=== PATIENT | female | born 1950 | race Caucasian/White ===

== ENCOUNTER → 2017-12-02 | Outpatient (CLI) | payer MEDICARE ==
[~2017-12-02] MED LIST: ALENDRONATE SOD70 MG PO; BENADRYL25 M1 PO; BENTYL10 MG PO; BUPROPION HCL100 MG PO; BUPROPION HCL75 MG PO; CALCIUM600 MG PO; CIPRO500 MG PO; DICLOFENAC SOD100 MG PO; DICYCLOMINE HCL10 MG PO; DIPHENHYDRAMINE25 M2 PO; DOXYCYCLINE HY100 MG PO; FUROSEMIDE40 MG PO; GABAPENTIN100 MG PO; IMODIUM2 MG PO; IMURAN50 MG PO; IRON325 MG PO; K DUR10 MEQ PO; KETOPROFEN50 MG PO; LASIX40 MG PO; LIDOPATCH1 EACH TD; LOPERAMIDE2 MG PO; LORATADINE10 M1 PO; LORATADINE10 MG PO; LOVENOX40 MG/0.4 SC; MELOXICAM7.5 MG PO; MUCINEX600 MG PO; MYRBETRIQ50 MG PO; NEOMYCIN-POLYMY10 ML EACH EAR; NORCO 10MG-325MG1 EA PO; NORCO 5-325 TA1 EACH PO; OMEPRAZOLE20 M1 PO; OYST-CAL-500500 MG PO; PANTOPRAZOLE SO40 MG PO; SENNA8.6 MG PO; SERTRALINE HCL100 MG PO; SERTRALINE HCL50 MG PO; SIMVASTATIN40 MG PO; SULFAMETHOXAZO1 EAC1 PO; TRAMADOL-ACETAMI1 EA PO; TRIFLUOPERAZINE1 MG PO; ULTRACET TABLE1 EACH PO; ULTRAM50 MG PO; VITAMIN D2000 UNIT PO; ZOCOR40 MG PO
--- NOTE | 2017-12-03 07:15 | Diagnostic Imaging Report ---
EXAMINATION: CT of the lumbar spine HISTORY: Low back pain radiating to the right lower extremity COMPARISON: Abdomen CT on 04/11/2015 TECHNIQUE: Multidetector helical axial images were obtained without contrast from L1 to S1. The images were reconstructed using bone and soft tissue algorithms and were viewed in axial, sagittal, and coronal planes. FINDINGS: Alignment:Normal alignment and lordosis. Vertebral bodies: -Normal height and density. -Irregularity of the spinous processes of T12, with a small bone fragment along the inferior margin of the T12 spinous process, also irregularities noted in the L4 and L5 spinous processes, perhaps sequela from remote trauma. -There is apposition of the spinous processes from L2-L3 to L4-L5 ([place] phenomena) with subchondral sclerosis. Paraspinal muscles:Partially visualized radiopaque stone in the left kidney, grossly unchanged from abdomen CT on 04/11/2015. Partially visualized wire from probable pain management device in the subcutaneous soft tissues of the left posterior lumbosacral/gluteal region. Intervertebral disks: L1-L2: Symmetric disc bulge, marginal endplate osteophytes and facet arthrosis. Moderate bilateral foraminal stenoses.. L2-L3: Mild symmetric disc bulge and facet arthrosis. Mild foraminal narrowing. L3-L4: Mild symmetric disc bulge, marginal endplate osteophytes and facet arthrosis. Mild foraminal narrowing.. L4-L5: Mild symmetric disc bulge, ligamenta flava thickening and moderate facet arthrosis. Mild spinal canal and bilateral foraminal stenoses.. L5-S1: Moderate bilateral facet arthroses with narrowing of the lateral recesses and moderate right, and mild left foraminal stenosis. Sacroiliac joints: Mild degenerative changes bilaterally. IMPRESSION: 1. Moderate degenerative foraminal stenosis bilaterally at L1-L2 and on the right at L5-S1. 2. Mild degenerative foraminal narrowing at L2-L3, L3-L4 and L4-L5. 3. Mild degenerative spinal canal stenosis at L4-5. Signed by: Dr. Cynthia Wright M.D. on 12/03/2017 7:11 AM
== END ==
LOC: CT 14:55
PROVIDERS: ATTEND Specialist
DX: M54.5 Low back pain (principal)
CPT/HCPCS: 72131

== ENCOUNTER 2018-03-27 20:35 | Emergency (ER) | payer MEDICARE, OTHER ==
[~2018-03-27] VITALS: Ht 154.9 cm; Wt 106.1 kg
--- OUTSIDE RECORDS SUMMARY | 2018-03-27 20:38 | XMS REPORT | Clinical Summary ---
Author Author [facility] Address Unknown Phone Unavailable Care Team Providers Care Financial Retirement Plan Specialist Name Role Phone MonicaTangela, Shanti PCP Allergies Comments Active Allergy Reactions Severity Noted Date Cefadroxil 06/12/2016 Codeine Rash Low 03/07/2016 Medications End Date Status Medication Sig Dispensed Refills Start Date Active buPROPion (WELLBUTRIN) 75 Take 150 mg 0 MG tablet by mouth 2 (two) times daily. Active trifluoperazine Take 1 mg by 0 (STELAZINE) 1 MG tablet mouth daily. Active simvastatin (ZOCOR) 40 MG Take 40 mg by 0 tablet mouth nightly. Active dicyclomine (BENTYL) 10 Take 10 mg by 0 MG capsule mouth 3 (three) times daily. Active TiZANidine (ZANAFLEX) 4 Take 4 mg by 0 MG capsule mouth every 8 (eight) hours. Active traZODone (DESYREL) 50 MG Take 50 mg by 0 tablet mouth nightly. Active azaTHIOprine (IMURAN) 50 Take 50 mg by 0 mg tablet mouth daily. Active alendronate (FOSAMAX) 70 Take 70 mg by 0 MG tablet mouth every 7 days Take in the morning with a full glass of water, on an empty stomach, and do not take anything else by mouth or lie down for the next 30 min. . Active ciclopirox (LOPROX) 0.77 Apply 0 % cream topically daily. Active gabapentin (NEURONTIN) Take 100 mg 0 100 MG capsule by mouth 3 (three) times daily. Active sertraline (ZOLOFT) 100 Take 100 mg 0 MG tablet by mouth daily. Active mirabegron (MYRBETRIQ) 50 Take by mouth 0 mg Tb24 daily. Active ketoconazole Apply 0 (KETOCONAZOLE) 2 % cream topically as needed. Active potassium chloride Take 10 mEq 0 (KLOR-CON) 10 MEQ CR by mouth 2 tablet (two) times daily. Active furosemide (LASIX) 40 MG Take 40 mg by 0 tablet mouth daily. Active clotrimazole-betamethason Apply 0 e (LOTRISONE) 1-0.05 % topically 2 lotion (two) times daily. Active phenazopyridine Take 200 mg 0 (PYRIDIUM) 200 MG tablet by mouth 3 (three) times daily as needed for Pain. Active Problems Problem Noted Date S/P appendectomy S/P tonsillectomy Tubal ligation status H/O foot surgery Social History Date Tobacco Use Types Packs/Day Years Used Former Smoker Smokeless Tobacco: Never Used Comments: Quit 15 years ago Alcohol Use Drinks/Week oz/Week Comments No Sex Assigned at Date Recorded Not on file Industry Job Start Date Occupation Not on file Not on file Not on file Travel End Travel History Travel Start No recent travel history available. Last Filed Vital Signs Not on file Plan of Treatment Not on file Implants Device Identifier Shelf Expiration Date Model / Serial / Lot Implanted Type Area Manufactur er 08/28/2019 3889-28 / / [id number] Lead Kt Spine Pisces Z Quad 28 Urology Left: Back [employer]: 3889-28 - [id number] NEUROMODUL Implanted: Qty: 1 on 06/19/2016 by Sergo Foley MD 08/30/2017 3058 / [id number] / Stimulator Neuro Int 3058 - Urology Left: Back [employer]: [id number] NEUROMODUL Implanted: Qty: 1 on 06/19/2016 by Sergo Foley MD Results Not on fileafter 03/26/2017 Insurance Payer Benefit Subscriber ID Type Phone Address Plan / Group [employer] [facility] AMER[employer]ROUP xxxxxxxxx CARE [facility] MEDICAID MEDICAID xxxxxxxxx Medicaid [place] ([place]) [place] [address]
--- OUTSIDE RECORDS SUMMARY | 2018-03-27 20:38 | XMS REPORT ---
Author Author [facility] Address Unknown Phone Unavailable Care Team Providers Care School Psychologist Name Role Phone CLIVE ARELLANO Unavailable Unavailable TORI BERNAL Unavailable Unavailable Problems This patient has no known problems. Allergies, Adverse Reactions, Alerts This patient has no known allergies or adverse reactions. Medications This patient has no known medications. Results Test Description Test Time Test Comments Text Results Atomic Results Result Comments CT LUMBAR SPINE WO 2017-12-03 07:04:00 [facility] [address] [address] Patient Name: JENNIFER RAGUETA MR #: [id number] : 1950 Age/Sex: 67/F Req #: [id number] Adm Physician: Ordered by: CLIVE ARELLANO MD Report #: [id number] Location: CT Room/Bed: Procedure: [id number] CT/CT LUMBAR SPINE WO Exam Date: 12/02/17 Exam Time: 1523 REPORT STATUS: Signed ADDENDUM #1 Dose modulation, iterative reconstruction, and/or weight based adjustment of the mA/kV was utilized to reduce the radiation dose to as low as reasonably achievable. Signed by: Dr. Cameron Wright M.D. on 01/06/2018 12:10 PM ORIGINAL REPORT EXAMINATION: CT of the lumbar spine HISTORY: Low back pain radiating to the right lower extremity COMPARISON: Abdomen CT on 04/11/2015 TECHNIQUE: Multidetector helical axial images were obtained without contrast from L1 to S1. The images were reconstructed using bone and soft tissue algorithms and were viewed in axial, sagittal, and coronal planes. FINDINGS: Alignment:Normal alignment and lordosis. Vertebral bodies: -Normal height and density. -Irregularity of the spinous processes of T12, with a small bone fragment along the inferior margin of the T12 spinous process, also irregularities noted in the L4 and L5 spinous processes, perhaps sequela from remote trauma. -There is apposition of the spinous processes from L2-L3 to L4-L5 ([place] phenomena) with subchondral sclerosis. Paraspinal muscles:Partially visualized radiopaque stone in the left kidney, grossly unchanged from abdomen CT on 04/11/2015. Partially visualized wire from probable pain management device in the subcutaneous soft tissues of the left posterior lumbosacral/gluteal region. Intervertebral disks: L1-L2: Symmetric disc bulge, marginal endplate osteophytes and facet arthrosis. Moderate bilateral foraminal stenoses.. L2-L3: Mild symmetric disc bulge and facet arthrosis. Mild foraminal narrowing. L3-L4: Mild symmetric disc bulge, marginal endplate osteophytes and facet arthrosis. Mild foraminal narrowing.. L4-L5: Mild symmetric disc bulge, ligamenta flava thi ckening and moderate facet arthrosis. Mild spinal canal and bilateral foraminal stenoses.. L5-S1: Moderate bilateral facet arthroses with narrowing of the lateral recesses and moderate right, and mild left foraminal stenosis. Sacroiliac joints: Mild degenerative changes bilaterally. IMPRESSION: 1. Moderate degenerative foraminal stenosis bilaterally at L1- L2 and on the right at L5-S1. 2. Mild degenerative foraminal narrowing at L2-L3, L3-L4 and L4-L5. 3. Mild degenerative spinal canal stenosis at L4-5. Signed by: Dr. Cameron Wright M.D. on 12/03/2017 7:11 AM Dictated By: CAMERON WRIGHT MD 1210 Transcribed By: EMERALD on 12/03/17 0711 COPY TO: CLIVE ARELLANO MD CHEST 2 VIEWS [facility] [address] [address] Patient Name: JENNIFER ARGUETA MR #: [id number] : 1950 Age/Sex: 66/F Req #: [id number] Adm Physician: Ordered by: TORI BERNAL MD Report #: [id number] Location: [facility] Room/Bed: Procedure: [id number] DX/CHEST 2 VIEWS Exam Date: 01/24/17 Exam Time: 939 REPORT STATUS: Signed PROCEDURE: X-RAY CHEST, TWO VIEWS COMPARISON: 03/10/2016. INDICATIONS: PULMONARY CONGESTION FINDINGS: Lungs are well-inflated. No focal airspace consolidation, pleural effusion, or pneumothorax. Tortuosity and atherosclerotic calcification of the thoracic aorta. Normal heart size. No pulmonary edema. No acute osseous abnormality. Nonaggressive appearing sclerotic focus in the proximal left humeral metadiaphysis likely represents an enchondroma or bone infarct. Well-circumscribed lucent lesion with a sclerotic margin in the right humeral head likely represents a subchondral cyst. Both lesions are unchanged relative to 03/10/2016. CONCLUSION: No acute cardiopulmonary abnormality. Dictated by: Tori Zamora M.D. on 01/24/2017 at 10:21 Electronically approved by: Tori Zamora M.D. on 01/24/2017 at 10:21 Dictated By: TORI ZAMORA MD 1021 Transcribed By: EMMANUEL on 01/24/17 1021 COPY TO: TORI BERNAL MD
--- OUTSIDE RECORDS SUMMARY | 2018-03-27 20:38 | XMS REPORT ---
Author Author Brisa Lynch [facility] Address Unknown Phone Unavailable Care Team Providers Care Mule Driver Name Role Phone Brisa Lynch Unavailable Allergies, Adverse Reactions, Alerts Substance Reaction Event Type N.K.D.A. 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 Assessment Hyperlipidemia, unspecified E78.5 Active Medications Medication Code System Code Instructions Start Date End Date Status Dosage azathioprine 50 mg tablet Unknown 0 Active Unknown dicyclomine 10 mg Cap Unknown 0 Active Unknown hydrocodone 10 mg-acetaminophen 325 mg tablet Unknown 0 Active Unknown Nystatin MEDISPAN [id number] [id number] UNIT/GM Externally Twice a day Active 1 to affected area pantoprazole 40 mg tablet,delayed release Unknown 0 Active Unknown gabapentin 300 mg Cap MEDISPAN [address]-85 Active Unknown bupropion HCl SR 150 mg tablet,extended release Unknown 0 Active Unknown tramadol 50 mg tablet Unknown 0 Active Unknown Simvastatin 40 mg Tab Unknown 0 Active Unknown Nystatin MEDISPAN [address]-45 598584 UNIT/GM Externally Twice a day Jan 23, 2016 Mar 05, 2016 Active 1 to affected area omeprazole 20 mg capsule,delayed release MEDISPAN [address]-46 Active Unknown Myrbetriq 50 mg tablet,extended release Unknown 0 Active Unknown Social History Social History Element Qualifiers Date Reported Tobacco Use: . Are you a: former smoker Mar 05, 2016 Caffeine intake? . Status: Yes Mar 05, 2016 Do you drink alcohol? . Status: No Mar 05, 2016 Family history Qualifier Description Comment Date Reported Maternal Grandmother Comment not available Mar 05, 2016 Paternal Grandmother Comment not available Mar 05, 2016 Siblings Comment not available Mar 05, 2016 Maternal Grandfather Comment not available Mar 05, 2016 Children Comment not available Mar 05, 2016 Father alive Comment not available Mar 05, 2016 Paternal Grandfather Comment not available Mar 05, 2016 Mother Comment not available Mar 05, 2016 Other: Comment not available Mar 05, 2016 Vital Signs Date/Time: Mar 05, 2016 Weight 277.2 lbs Height 61 in Temperature 97.8 F Cardiac Monitoring Heart Rate 65 /min Blood Pressure Diastolic 70 mm Hg Blood Pressure Systolic 110 mm Hg Summary Purpose eClinicalWorks Submission
--- OUTSIDE RECORDS SUMMARY | 2018-03-27 20:38 | XMS REPORT | Continuity of Care Document ---
Author Author [facility] Address Unknown Phone Unavailable Problems Problem Status Onset Date Classification Date Reported Comments Source Candidiasis of vulva and vagina Active Diagnosis 03/06/2016 [id number] Furuncle of groin Active Diagnosis 03/06/2016 2.840.1.905110.4.391.11 Zahira infection of genital region Active Diagnosis 03/06/2016 2.840.1.494387.4.391.11 Hyperlipidemia, unspecified Active Diagnosis 03/06/2016 2.840.1.416001.4.39111 Medications Medication Details Route Status Patient Instructions Ordering Provider Order Date Source Nystatin 1 to affected area Externally Active 555966 UNIT/GM Externally Twice a day [place] 01/23/2016 2.840.1.910662.4.391.11.11854 azathioprine 50 mg tablet Unknown NA Active [place] 2.840.1.791460.4.391.1114054 dicyclomine 10 mg Cap Unknown NA Active [place] 2.840.1.595152.4.391.1139753 hydrocodone 10 mg-acetaminophen 325 mg tablet Unknown NA Active [place] 2.840.1.868012.4.391.11.12618 Nystatin 1 to affected area Externally Active 756989 UNIT/GM Externally Twice a day [place] 2.840.1.846371.4.391.1192369 pantoprazole 40 mg tablet,delayed release Unknown NA Active [place] 2.840.1.723710.4.391.11.28453 gabapentin 300 mg Cap Unknown NA Active [place] 2.840.1.633965.4.391.11.87165 bupropion HCl SR 150 mg tablet,extended release Unknown NA Active [place] 2.16840.1.411351.4.391.11.34359 tramadol 50 mg tablet Unknown NA Active [place] 2.16.840.1.821151.4.391.11.25865 Simvastatin 40 mg Tab Unknown NA Active [place] 2.16840.1.971148.4.391.11.15314 omeprazole 20 mg capsule,delayed release Unknown NA Active [place] 2.16840.1.349992.4.391.11.92820 Myrbetriq 50 mg tablet,extended release Unknown NA Active [place] 2.16840.1.958597.4.391.11.39000 Allergies, Adverse Reactions, Alerts Substance Category Reaction Severity Reaction type Status Date Reported Comments Source N.K.D.A. Adverse Reaction Info Not Available Adverse Reaction Active 03/05/2016 2.16.840.1.710810.4.391.11.73577 Immunizations Immunization Date Given Site Status Last Updated Comments Source Results Order Name Results Value Reference Range Date Interpretation Comments Source Vital Signs Vital Sign Value Date Comments Source Weight 277.2 03/05/2016 2.16.840.1.000884.4.391.11.45618 Height 61 03/05/2016 2.16.840.1.950978.4.391.11.76973 Temperature Oral (F) 97.8 F 03/05/2016 2.16.840.1.797180.4.391.11.45931 Heart Rate 65 03/05/2016 2.16.840.1.347174.4.391.11.62334 Diastolic (mm Hg) 70 03/05/2016 2.16.840.1.125942.4.391.11.64916 Systolic (mm Hg) 110 03/05/2016 2.16.840.1.432281.4.391.11.13959 Encounters Location Location Details Encounter Type Encounter Number Reason For Visit Attending Provider ADM Date DC Date Status Source [facility] f/u office visit [id number] 03/05/2016 03/05/2016 2.16.840.1.812720.4.391.11.70245 Procedures Procedure Code Date Perfomer Comments Source
[2018-03-27] MEDS ORDERED: HYDROCODONE/APAP 10MG-325MG TAB PO ONE (23:00)
--- NOTE | 2018-03-27 23:06 | Diagnostic Imaging Report ---
FOREARM LEFT 2 VIEW, WRIST COMPLETE LEFT, HAND 3+ VIEWS LEFT HISTORY: Fall in kitchen. Left wrist/hand pain. COMPARISON: None available. FINDINGS: Bones: Comminuted fracture of the distal radius with intra-articular extension and mild proximal displacement and apex volar angulation of the fracture fragments. Joints: Scattered mild degenerative changes of the hand and wrist. Soft tissues: Soft tissue swelling of the wrist. IMPRESSION: Acute comminuted fracture of the distal radius with intra-articular extension. Signed by: DR. Mirza Jasso MD on 03/27/2018 11:03 PM
[2018-03-27] MEDS ORDERED: MORPHINE SULFATE 2 MG/ML SYR IV STA (23:19)
== END 2018-03-27 23:37 | disposition home or self-care (01) ==
LOC: ER 20:35
DX: S52.572A Other intraarticular fracture of lower end of left radius, initial encounter for closed fracture (principal); W01.0XXA Fall on same level from slipping, tripping and stumbling without subsequent striking against object, initial encounter; Y92.008 Other place in unspecified non-institutional (private) residence as the place of occurrence of the external cause; Y99.8 Other external cause status
CPT/HCPCS: 99283

== ENCOUNTER → 2018-12-08 | Outpatient (CLI) | payer MEDICARE, OTHER ==
--- NOTE | 2018-12-08 16:33 | Diagnostic Imaging Report ---
EXAMINATION: CHEST 2 VIEWS INDICATION: Fatigue COMPARISON: None FINDINGS: TUBES and LINES: None. LUNGS: The lungs are well inflated. No focal consolidation or pulmonary edema. PLEURA: No pleural effusion or pneumothorax. HEART AND MEDIASTINUM: The cardiomediastinal silhouette is normal in size and contour. Prominence of the mildly tortuous ascending thoracic aorta. BONES AND SOFT TISSUES: No acute fracture or dislocation. Benign-appearing sclerotic lesion in the left proximal humerus with chondroid matrix. Degenerative changes of the visualized spine. UPPER ABDOMEN: No free air under the diaphragm. IMPRESSION: No focal pneumonia or pulmonary edema. Signed by: Belen Cuevas MD on 12/08/2018 4:28 PM
== END ==
LOC: RAD 14:31
PROVIDERS: ATTEND Internal Medicine
DX: R53.83 Other fatigue (principal)
CPT/HCPCS: 71046

== ENCOUNTER → 2019-10-20 | Outpatient (CLI) | payer MEDICARE, OTHER ==
--- NOTE | 2019-10-20 15:06 | Diagnostic Imaging Report ---
PROCEDURE: X-RAY MODIFIED BARIUM SWALLOW COMPARISON: None. INDICATION: Aspiration Radiation Details: Fluoroscopy time: 2.1 minutes Cumulative dose: 12.0 mGy DISCUSSION: Fluoroscopic examination was performed in conjunction with speech pathology during swallowing a variety of thin and thick liquid consistencies. Provided images demonstrate laryngeal penetration and aspiration. CONCLUSION: Modified barium swallow demonstrating laryngeal penetration and aspiration. Please refer to the speech pathology report for further details. Signed by: Belen Cuevas MD on 10/20/2019 3:02 PM
== END ==
LOC: DX 12:37
PROVIDERS: ATTEND Otolaryngology
DX: R13.12 Dysphagia, oropharyngeal phase (principal); K21.0 Gastro-esophageal reflux disease with esophagitis; Z11.59 Encounter for screening for other viral diseases
CPT/HCPCS: 74230; 87635

== ENCOUNTER → 2019-12-06 | Outpatient (CLI) | payer MEDICARE, OTHER | LOC: LAB 05:00 | PROVIDERS: ATTEND Otolaryngology | DX: R13.10 Dysphagia, unspecified (principal); K21.0 Gastro-esophageal reflux disease with esophagitis; Z11.59 Encounter for screening for other viral diseases | CPT/HCPCS: U0002 ==

== ENCOUNTER → 2020-03-07 | Outpatient (CLI) | payer MEDICARE ==
[~2020-03-07] VITALS: Ht 154.9 cm; Wt 75.3 kg
[~2020-03-07] MED LIST changes: +ACETAMINOPHEN325 M1 PO; +BIOTIN2500 MCG PO; +BUPROPION HCL150 MG PO; +CENTRUM SILVER1 EAC5 PO; +FLUOXETINE HCL20 MG PO; +GLUCOSAMIN-CHO1 EACH PO; +NAMENDA10 MG PO; +PROBIOTIC & AC1 EACH PO; +QUESTRAN PACKET4 GM PO; +QUETIAPINE FUMA25 MG PO; +TIZANIDINE HCL4 MG PO; +TRAZODONE HCL50 MG PO; +VIT B12 PO
[2020-03-07 10:41] LABS: BASOPHILS # (AUTO) 0.1 (0.0-0.1); BASOPHILS % 1.8 % (0.0-1.0); EOSINOPHILS # (AUTO) 0.3 (0.0-0.4); EOSINOPHILS % 5.9 % (0.0-6.0); HEMATOCRIT 34.8 % (34.2-44.1); HEMOGLOBIN 11.3 g/dL (12.0-16.0); LYMPHOCYTES # (AUTO) 1.5 (1.0-3.2); MEAN CORPUSCULAR HEMOGLOBIN 32.3 pg (28-32); MEAN CORPUSCULAR HGB CONC 32.5 g/dL (31-35); MEAN CORPUSCULAR VOLUME 99.4 fL (81-99); MONOCYTES # (AUTO) 0.5 (0.2-0.8); MONOCYTES % 10.5 % (4.4-11.3); NEUTROPHILS # (AUTO) 2.1 (2.1-6.9); NEUTROPHILS % 46.6 % (38.7-80.0); PLATELET COUNT 205 x10e3/uL (140-360); RED CELL DISTRIBUTION WIDTH 11.9 % (11.7-14.4)
== END ==
LOC: DX 14:41 → EDSTATUS 03-10 06:30
PROVIDERS: ATTEND Podiatrist Foot & Ankle Surgery
DX: Z01.812 Encounter for preprocedural laboratory examination (principal); Z20.828 Contact with and (suspected) exposure to other viral communicable diseases; Z01.818 Encounter for other preprocedural examination; M20.41 Other hammer toe(s) (acquired), right foot
CPT/HCPCS: 36415; 85025; U0002; 71046; 93005

== ENCOUNTER 2021-03-08 10:53 | Emergency (ER) | payer MEDICARE, OTHER ==
[~2021-03-08] VITALS: Ht 154.9 cm; Wt 77.6 kg
== END 2021-03-08 13:40 | disposition home or self-care (01) ==
LOC: ER 10:57
DX: S01.81XA Laceration without foreign body of other part of head, initial encounter (principal); M25.531 Pain in right wrist; W01.0XXA Fall on same level from slipping, tripping and stumbling without subsequent striking against object, initial encounter; Y93.01 Activity, walking, marching and hiking; Y92.008 Other place in unspecified non-institutional (private) residence as the place of occurrence of the external cause; I10 Essential (primary) hypertension; E78.5 Hyperlipidemia, unspecified; K21.9 Gastro-esophageal reflux disease without esophagitis; F41.9 Anxiety disorder, unspecified; Z98.84 Bariatric surgery status
CPT/HCPCS: 99283

== ENCOUNTER 2021-04-21 10:23 | Emergency (ER) | payer MEDICARE ==
[~2021-04-21] VITALS: Ht 154.9 cm; Wt 72.1 kg
== END 2021-04-21 12:45 | disposition home or self-care (01) ==
LOC: ER 10:33
DX: M25.512 Pain in left shoulder (principal); M54.89 Other dorsalgia; W18.30XA Fall on same level, unspecified, initial encounter
CPT/HCPCS: 70450; 71046; 72125; 93005; 99284

== ENCOUNTER → 2023-04-09 | Day surgery (SDC) | payer MEDICARE ==
[2023-04-01 08:49] LABS: BASOPHILS # (AUTO) 0.1 (0.0-0.1); BASOPHILS % 2.1 % (0.0-1.0); EOSINOPHILS # (AUTO) 0.2 (0.0-0.4); EOSINOPHILS % 4.1 % (0.0-6.0); HEMATOCRIT 34.6 % (34.2-44.1); HEMOGLOBIN 11.2 g/dL (12.0-16.0); LYMPHOCYTES # (AUTO) 1.4 (1.0-3.2); LYMPHOCYTES % 26.7 % (18.0-39.1); MEAN CORPUSCULAR HEMOGLOBIN 32.4 pg (28-32); MEAN CORPUSCULAR HGB CONC 32.4 g/dL (31-35); MONOCYTES # (AUTO) 0.6 (0.2-0.8); MONOCYTES % 10.5 % (4.4-11.3); NEUTROPHILS % 56.4 % (38.7-80.0); PLATELET COUNT 224 x10e3/uL (140-360); RED BLOOD COUNT 3.46 x10e6/uL (3.6-5.1); RED CELL DISTRIBUTION WIDTH 12.2 % (11.7-14.4); WHITE BLOOD COUNT 5.32 x10e3/uL (4.8-10.8)
[~2023-04-09] MED LIST changes: +ACETAMINOPHEN-1 EAC3 PO; +BUPIVACAINE HCL 0.5% INJ 30 ML VIAL INJ ONE; +CEFAZOLIN SODIUM 2 GM ONE; +COLESTIPOL HCL1 GM PO; +COMBIVENT RESPIM4 GM IH; +DEXAMETHASONE SOD PHOS INJ 4 MG/ML SDV ONE; +EPHEDRINE SULFATE INJ 50 MG/ML VIAL ONE; +FAMOTIDINE20 MG PO; +GALANTAMINE HBR8 MG PO; +GLYCOPYRRO0.2 MG/1 M PO; +KETOROLAC TROMETHAMINE 30 MG/ML VIAL ONE; +LACTATED RINGER'S 1,000 ML ONE; +LIDOCAINE HCL 2% LOCAL INJ 5 ML SDV VIAL INJ ONE; +MONTELUKAST SOD10 MG PO; +MUPIROCIN 2% OINT 22 GM TUBE ONE; +OMEPRAZOLE40 MG PO; +ONDANSETRON HCL INJ 2MG/ML 2ML 2 MG/ML VIAL ONE; +PHENYLEPHRINE HCL 1% 10 MG/ML VIAL ONE; +PROPOFOL IV EMULSION 10 MG/ML 20 ML VIAL ONE; +SEVOFLURANE INHAL SOLN 250 ML PEN BTL ONE; +ipratropium; +vit c PO
[2023-04-09 08:40] VITALS: BP 144/76; PULSE 92; RESP 16; O2SAT 93
== END | disposition home or self-care (01) ==
LOC: OR 05:25
PROVIDERS: ATTEND Podiatrist Foot & Ankle Surgery
DX: M20.41 Other hammer toe(s) (acquired), right foot (principal); M06.9 Rheumatoid arthritis, unspecified; M81.0 Age-related osteoporosis without current pathological fracture; G62.9 Polyneuropathy, unspecified; I10 Essential (primary) hypertension; F41.9 Anxiety disorder, unspecified; F32.A Depression, unspecified; Z01.810 Encounter for preprocedural cardiovascular examination; Z01.812 Encounter for preprocedural laboratory examination; Z01.818 Encounter for other preprocedural examination; Z79.899 Other long term (current) drug therapy
CPT/HCPCS: 28285 ×2; 36415; 71046; 85025; 93005; C1713 ×2; J1100; J1885; J2001; J2371; J2405; J2704; J7121

== ENCOUNTER → 2025-02-14 | Outpatient (REF) | payer MEDICARE ==
[~2025-02-14] MED LIST changes: +BENZONATATE100 MG PO; -BUPIVACAINE HCL 0.5% INJ 30 ML VIAL INJ ONE; -CEFAZOLIN SODIUM 2 GM ONE; -DEXAMETHASONE SOD PHOS INJ 4 MG/ML SDV ONE; -EPHEDRINE SULFATE INJ 50 MG/ML VIAL ONE; -KETOROLAC TROMETHAMINE 30 MG/ML VIAL ONE; -LACTATED RINGER'S 1,000 ML ONE; -LIDOCAINE HCL 2% LOCAL INJ 5 ML SDV VIAL INJ ONE; -MUPIROCIN 2% OINT 22 GM TUBE ONE; +NAPROXEN250 MG PO; -ONDANSETRON HCL INJ 2MG/ML 2ML 2 MG/ML VIAL ONE; -PHENYLEPHRINE HCL 1% 10 MG/ML VIAL ONE; -PROPOFOL IV EMULSION 10 MG/ML 20 ML VIAL ONE; -SEVOFLURANE INHAL SOLN 250 ML PEN BTL ONE
== END ==
LOC: RAD 08:06
PROVIDERS: ATTEND Internal Medicine
DX: Z01.818 Encounter for other preprocedural examination (principal)
CPT/HCPCS: 71046